=== PATIENT | female | born 1985 | race Caucasian/White ===

== ENCOUNTER 2024-11-09 12:06 | Outpatient (REF) | payer OTHER, SELFPAY ==
[2024-11-09 12:34] VITALS: BP 135/100; BP_SYST 74
[2024-11-09 12:36] LABS: INR 0.99; PT 13.6 Sec (11.4-14.6)
[2024-11-09 13:23] VITALS: BP 135/105; BP_SYST 68
[2024-11-09 13:45] VITALS: BP 132/89
[2024-11-09 13:50] LABS: CSF Color Colorless
[2024-11-09 14:00] VITALS: BP 139/92
[2024-11-09 14:01] LABS: White Cell Count/CSF 1 mm^3 (0-5)
[2024-11-09 14:02] LABS: CSF Color Colorless; CSF Tube # Clarity Clear
[2024-11-09 14:07] LABS: Red Cell Count/CSF 224 mm^3
[2024-11-09 14:12] LABS: Red Cell Count/CSF 8 mm^3; White Blood Cell Count/CSF 0 mm^3 (0-5)
[2024-11-09 15:14] VITALS: BP 127/88
[2024-11-11 18:31] LABS: CSF VDRL (T. pallidum) Non Reactive (Non Reactive)
[2024-11-12 12:42] LABS: Albumin, CSF 19 mg/dL (0-35); Albumin, Serum 3477 mg/dL (3500-5200); IgG, CSF 2.4 mg/dL (0.0-6.0)
[2024-11-12 18:56] LABS: FTA-ABS/T. pallidum, IgG Serum Non Reactive (Non Reactive)
[2024-11-12 23:29] LABS: Lyme Disease DNA by PCR Not Detected; Lyme Source CSF
== END 2024-11-09 15:15 | disposition home or self-care (01) ==
LOC: REG 12:06
PROVIDERS: ATTENDING PHYSICIAN Specialist; FAMILY PHYSICIAN Family Medicine; OTHER PHYSICIAN Physician Assistant
DX: G35.D Multiple sclerosis, unspecified (principal); Z01.812 Encounter for preprocedural laboratory examination; Z01.818 Encounter for other preprocedural examination
CPT/HCPCS: 36415; 62328; 82040; 82042; 82784; 82945; 83873; 83916; 84157; 85610; 86592; 86780; 87476; 89051